=== PATIENT | female | born 1990 | race Caucasian/White ===

== ENCOUNTER 2019-04-16 18:08 | Emergency (ER) | payer OTHER ==
[~2019-04-16] VITALS: Ht 167.6 cm; Wt 100.0 kg
[2019-04-16 18:12] VITALS: BP 134/62; Ht 167.6 cm; Wt 100.0 kg
[2019-04-16] MEDS ORDERED: PAXIL40 MG PO (18:13)
[2019-04-16] MEDS ORDERED: AUGMENTIN 875-11 TAB PO (18:39)
== END 2019-04-16 19:02 | disposition home or self-care (01) ==
LOC: D.ER 18:08
DX: S61.452A Open bite of left hand, initial encounter (principal); W55.01XA Bitten by cat, initial encounter; Y93.9 Activity, unspecified; W55.03XA Scratched by cat, initial encounter